=== PATIENT | female | born 1995 | race Caucasian/White ===

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

== ENCOUNTER 2017-03-16 17:19 | Emergency (ER) | payer MEDICAID ==
[~2017-03-16] VITALS: Ht 167.6 cm; Wt 46.7 kg
[~2017-03-16 17:19] MED LIST changes: +IBU800 M1 PO
[2017-03-16 17:28] VITALS: BP 111/63; TEMP 98.9
[2017-03-16 19:01] LABS: BASO % 0.4 % (0.0-2.0); EOS # 0.2 (0.0-0.7); EOS % 2.1 % (0-4.0); GRAN # 5.1 (1.4-6.5); GRAN % 70.1 % (42.2-75.2); HEMATOCRIT 41.7 % (35.0-45.0); HEMOGLOBIN 13.7 g/dl (12.0-15.0); LYMPH # 1.5 (1.2-3.4); MEAN CELL VOLUME 104 fl (80.0-95.0); MEAN CORPUSCULAR HEMOGLOBIN 34 pg (26.0-32.0); MEAN CORPUSCULAR HGB CONC 33 g/dl (33.0-37.0); MEAN PLATELET VOLUME 10.2 fl (7.4-10.4); MONO # 0.4 (0.1-0.6); MONO % 6.1 % (1.7-9.3); PLATELET COUNT 203 K/mm3 (130-400); RED BLOOD COUNT 4.01 M/mm3 (4.10-5.30); REDCELL DISTRIBUTION WIDTH-CV 12.3 % (11.5-14.5); WHITE BLOOD COUNT 7.3 K/mm3 (4.8-10.8)
[2017-03-16 19:10] LABS: ADJUSTED CALCIUM 8.7 mg/dL (8.4-10.2); ALBUMIN 4.2 gm/dL (3.5-5.0); BILIRUBIN,TOTAL 0.5 mg/dL (0.0-1.0); CALCIUM 8.9 mg/dL (8.4-10.2); CREATININE, serum 0.69 mg/dL (0.52-1.25); TOTAL PROTEIN 6.9 gm/dL (6.4-8.2)
[2017-03-16 19:28] LABS: PH 6 (5-8); URINE APPEARANCE Clear; URINE BACTERIA None Seen /hpf; URINE BILIRUBIN Negative (NEGATIVE); URINE BLOOD Negative (NEGATIVE); URINE COLOR Yellow; URINE GLUCOSE Negative (NEGATIVE); URINE KETONE Negative (NEGATIVE); URINE RBC 0-2 /hpf; URINE UROBILINOGEN Negative (NEGATIVE); URINE WBC 0-2 /hpf
[2017-03-16 19:42] VITALS: PULSE 87
== END 2017-03-16 19:43 | disposition home or self-care (01) ==
LOC: COL.ER 17:19
PROVIDERS: Nurse Practitioner
DX: R10.11 Right upper quadrant pain (principal); F17.210 Nicotine dependence, cigarettes, uncomplicated

== ENCOUNTER 2017-09-04 17:22 | Emergency (ER) | payer SELFPAY ==
[~2017-09-04] VITALS: Ht 167.6 cm; Wt 48.2 kg
[2017-09-04 17:29] VITALS: BP 116/57; TEMP 98.2
[2017-09-04] MEDS ORDERED: PRENATAL 191 CTB PO (17:31)
[2017-09-04 18:25] LABS: COLLECTION METHOD CLEAN CATCH
[2017-09-04 18:36] LABS: AMORPHOUS CRYSTAL Present /uL; MUCOUS Present /lpf; PH 6 (5-8); SQUAMOUS EPITHELIAL 0-2 /hpf; URINE APPEARANCE Cloudy; URINE BACTERIA None Seen /hpf; URINE BILIRUBIN Negative (NEGATIVE); URINE BLOOD Negative (NEGATIVE); URINE COLOR Yellow; URINE GLUCOSE Negative (NEGATIVE); URINE KETONE Negative (NEGATIVE); URINE LEUKOCYTE ESTERASE Trace (NEGATIVE); URINE NITRATE Negative (NEGATIVE); URINE PROTEIN(semi-quant) Negative (NEGATIVE); URINE RBC 0-2 /hpf; URINE UROBILINOGEN Negative (NEGATIVE)
[2017-09-04 20:34] VITALS: PULSE 80
== END 2017-09-04 20:34 | disposition home or self-care (01) ==
LOC: COL.ER 17:22
PROVIDERS: Nurse Practitioner Primary Care
DX: Z36.89 Encounter for other specified antenatal screening (principal); Z3A.00 Weeks of gestation of pregnancy not specified; O99.332 Smoking (tobacco) complicating pregnancy, second trimester; F17.210 Nicotine dependence, cigarettes, uncomplicated

== ENCOUNTER 2017-12-20 17:36 | Outpatient (CLI) | payer MEDICAID ==
[~2017-12-20] VITALS: Ht 170.2 cm; Wt 56.8 kg
[~2017-12-20 17:36] MED LIST changes: +PRENATAL 191 CTB PO
[2017-12-20 17:49] VITALS: BP 114/70; PULSE 88; TEMP 98.4
[2017-12-20 18:15] VITALS: BP 108/69; PULSE 88
[2017-12-20 18:43] LABS: BASO % 0.2 % (0.0-2.0); EOS # 0.2 (0.0-0.7); EOS % 1.7 % (0-4.0); GRAN # 8.5 (1.4-6.5); GRAN % 68.6 % (42.2-75.2); HEMOGLOBIN 10.6 g/dl (12.0-15.0); LYMPH # 2.6 (1.2-3.4); LYMPH % 20.5 % (20.0-51.0); MEAN CELL VOLUME 103 fl (80.0-95.0); MEAN CORPUSCULAR HEMOGLOBIN 35 pg (26.0-32.0); MEAN CORPUSCULAR HGB CONC 34 g/dl (33.0-37.0); MEAN PLATELET VOLUME 11.5 fl (7.4-10.4); MONO % 8.4 % (1.7-9.3); PLATELET COUNT 131 K/mm3 (130-400); RED BLOOD COUNT 3.02 M/mm3 (4.10-5.30); REDCELL DISTRIBUTION WIDTH-CV 12.2 % (11.5-14.5)
[2017-12-20 18:44] LABS: HEMATOCRIT 31.2 % (35.0-45.0)
[2017-12-20 18:50] LABS: COLLECTION METHOD CLEAN CATCH
[2017-12-20 19:02] LABS: TRICYCLIC ANTIDEPRESS URINE NEGATIVE
[2017-12-20 19:04] LABS: MUCOUS Present /lpf; PH 6 (5-8); URINE APPEARANCE Hazy; URINE BACTERIA None Seen /hpf; URINE BILIRUBIN Negative (NEGATIVE); URINE BLOOD 3+ (NEGATIVE); URINE COLOR Yellow; URINE GLUCOSE Negative (NEGATIVE); URINE KETONE Negative (NEGATIVE); URINE LEUKOCYTE ESTERASE Trace (NEGATIVE); URINE NITRATE Negative (NEGATIVE); URINE PROTEIN(semi-quant) 1+ (NEGATIVE); URINE RBC >50 /hpf; URINE UROBILINOGEN Negative (NEGATIVE)
== END 2017-12-20 19:45 | disposition home or self-care (01) ==
LOC: LDRO 17:36
PROVIDERS: Obstetrics & Gynecology
DX: O46.93 Antepartum hemorrhage, unspecified, third trimester (principal); Z3A.35 35 weeks gestation of pregnancy

== ENCOUNTER 2018-01-12 17:34 | Inpatient (IN) | payer MEDICAID ==
[2018-01-12] VITALS (19 sets, daily range): BP systolic 109–139; BP diastolic 63–99; PULSE 56–83; TEMP 97.9
[~2018-01-12] VITALS: Ht 167.6 cm; Wt 56.8 kg
[2018-01-12 19:08] LABS: BASO % 0.4 % (0.0-2.0); EOS # 0.2 (0.0-0.7); EOS % 1.9 % (0-4.0); GRAN # 7.9 (1.4-6.5); GRAN % 70.5 % (42.2-75.2); HEMOGLOBIN 11.7 g/dl (12.0-15.0); LYMPH # 2.1 (1.2-3.4); LYMPH % 18.6 % (20.0-51.0); MEAN CELL VOLUME 103 fl (80.0-95.0); MEAN CORPUSCULAR HEMOGLOBIN 36 pg (26.0-32.0); MEAN CORPUSCULAR HGB CONC 35 g/dl (33.0-37.0); MONO # 0.9 (0.1-0.6); MONO % 8.2 % (1.7-9.3); PLATELET COUNT 138 K/mm3 (130-400); RED BLOOD COUNT 3.29 M/mm3 (4.10-5.30); REDCELL DISTRIBUTION WIDTH-CV 12.5 % (11.5-14.5)
[2018-01-12 19:12] LABS: HEMATOCRIT 33.8 % (35.0-45.0)
[2018-01-12 19:20] LABS: TRICYCLIC ANTIDEPRESS URINE NEGATIVE
[2018-01-13 00:45] VITALS: BP 98/57; PULSE 73; TEMP 97.4
[2018-01-13 05:20] VITALS: BP 113/72; PULSE 64; TEMP 98.4
[2018-01-13 07:36] VITALS: BP 105/63; PULSE 74; TEMP 97.9
[2018-01-13 16:23] VITALS: BP 109/70; PULSE 68; TEMP 97.9
[2018-01-13 20:30] VITALS: BP 102/66; PULSE 85; TEMP 97.7
[2018-01-14 10:00] VITALS: BP 120/68; PULSE 85; TEMP 98.5
[2018-01-14] MEDS ORDERED: IBU800 M1 PO (10:21)
== END 2018-01-14 18:10 | disposition home or self-care (01) | DRG 775 ==
LOC: LDRO 17:34 → OB 18:01 → LDR 18:01 → OB 01-13
PROVIDERS: Obstetrics & Gynecology
PROC: 10D07Z6 Extraction of Products of Conception, Vacuum, Via Natural or Artificial Opening (ICD-10-PCS; principal; 2018-01-12)
PROC: 0HQ9XZZ Repair Perineum Skin, External Approach (ICD-10-PCS; 2018-01-12)
DX: O32.8XX0 Maternal care for other malpresentation of fetus, not applicable or unspecified (principal); O42.02 Full-term premature rupture of membranes, onset of labor within 24 hours of rupture; O99.323 Drug use complicating pregnancy, third trimester; O75.81 Maternal exhaustion complicating labor and delivery; O70.0 First degree perineal laceration during delivery; F19.10 Other psychoactive substance abuse, uncomplicated; Z37.0 Single live birth; Z3A.38 38 weeks gestation of pregnancy
CPT/HCPCS: J2540; J2590; J2795; J7120

== ENCOUNTER 2018-06-06 22:22 | Emergency (ER) | payer MEDICAID ==
[~2018-06-06] VITALS: Ht 167.6 cm; Wt 54.5 kg
[2018-06-06 22:24] VITALS: BP 151/83; PULSE 101; TEMP 98.6
[2018-06-06] MEDS ORDERED: AMOXICILLIN 50500 MG PO (22:47)
[2018-06-06] MEDS ORDERED: ULTRAM 50MG TAB50 MG PO (22:47)
== END 2018-06-06 23:15 | disposition home or self-care (01) ==
LOC: COL.ER 22:22
DX: K02.9 Dental caries, unspecified (principal); F17.210 Nicotine dependence, cigarettes, uncomplicated

== ENCOUNTER 2018-09-14 07:11 | Emergency (ER) | payer MEDICAID ==
[~2018-09-14] VITALS: Ht 167.6 cm; Wt 47.8 kg
[~2018-09-14 07:11] MED LIST changes: +ULTRAM 50MG TAB50 MG PO
[2018-09-14 07:15] VITALS: BP 144/97; PULSE 104; TEMP 98.7
[2018-09-14] MEDS ORDERED: AMOXICILLIN875 MG PO (08:15)
[2018-09-14] MEDS ORDERED: NORCO 325 MG-7.1 TAB PO (08:15)
== END 2018-09-14 08:34 | disposition home or self-care (01) ==
LOC: COL.ER 07:11
DX: S02.5XXA Fracture of tooth (traumatic), initial encounter for closed fracture (principal); K02.9 Dental caries, unspecified; F90.9 Attention-deficit hyperactivity disorder, unspecified type; F17.210 Nicotine dependence, cigarettes, uncomplicated; X58.XXXA Exposure to other specified factors, initial encounter

== ENCOUNTER → 2021-04-07 | Emergency (ER) | payer SELFPAY ==
[~2021-04-07] MED LIST changes: +AMOXICILLIN875 MG PO; +NORCO 325 MG-7.1 TAB PO
== END ==
LOC: COL.ER 16:07
DX: R69 Illness, unspecified (principal)